=== PATIENT | female | born 2000 | race African-American/Black ===

== ENCOUNTER 2024-03-04 14:16 | Emergency (ER) | payer SELFPAY ==
[~2024-03-04] VITALS: Ht 170.2 cm; Wt 149.7 kg
[2024-03-04 14:17] VITALS: O2SAT 100
[2024-03-04] MEDS ORDERED: ELIMITE60 GM TOP (14:36)
== END 2024-03-04 14:47 | disposition home or self-care (01) ==
LOC: ER 14:31
DX: B86 Scabies (principal)
CPT/HCPCS: 99283